=== PATIENT | female | born 1965 | race Caucasian/White ===

== ENCOUNTER 2018-03-06 14:39 | Emergency (ER) | payer MEDICAID ==
[~2018-03-06] VITALS: Ht 149.9 cm; Wt 62.7 kg
[2018-03-06 14:43] VITALS: BP 128/82
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
[2018-03-06] MEDS ORDERED: KETOROLAC 60 MG/2 ML VIAL IM ONE (15:40)
--- NOTE | 2018-03-06 15:41 | NUR ---
Patient being evaluated by physician at bedside.
[2018-03-06 16:17] VITALS: BP 128/68
--- NOTE | 2018-03-06 16:18 | NUR ---
Patient discharged with v/s stable. Written and verbal after care instructions given and explained. Patient alert, oriented and verbalized understanding of instructions. Ambulatory with steady gait. All questions addressed prior to discharge. ID band removed. Patient advised to follow up with PMD. Rx of MOTRIN AND NORCO given. Patient educated on indication of medication including possible reaction and side effects. Opportunity to ask questions provided and answered.
== END 2018-03-06 16:18 | disposition home or self-care (01) ==
LOC: MED 14:39
DX: S93.401A Sprain of unspecified ligament of right ankle, initial encounter (principal); W11.XXXA Fall on and from ladder, initial encounter; Y93.89 Activity, other specified; Y92.89 Other specified places as the place of occurrence of the external cause; Y99.8 Other external cause status
CPT/HCPCS: 73610; 96372; 99284; J1885; Q0092